=== PATIENT | male | born 2000 | race Caucasian/White ===

== ENCOUNTER 2020-06-09 23:12 | Emergency (ER) | payer MEDICAID ==
[~2020-06-09] VITALS: Ht 175.3 cm; Wt 90.3 kg
[2020-06-09 23:35] VITALS: BP 137/72
[2020-06-10 01:06] VITALS: BP 128/64
== END 2020-06-10 01:06 | disposition home or self-care (01) ==
LOC: MED 23:12
DX: L03.116 Cellulitis of left lower limb (principal); F17.210 Nicotine dependence, cigarettes, uncomplicated
CPT/HCPCS: 99283